=== PATIENT | female | born 1970 | race Caucasian/White ===

== ENCOUNTER 2017-06-02 18:05 | Observation (INO) | payer SELFPAY ==
[~2017-06-02] VITALS: Ht 164.6 cm; Wt 75.2 kg
--- NOTE | ~2017-06-02 | CON ---
PATIENT'S NAME: BRENTON MCKENZIE [facility] AGE: 46 Y [address] ROOM: [id number] [place], [place] [address] LOCATION: [facility] ADMIT DATE: 06/02/2017 Consultation DISCHARGE DATE: 06/02/2017 FAMILY PHYSICIAN: Physician, Unknown ATTENDING PHYSICIAN: Aria Stout This is a consultation for Dr. Stout, who has requested for medical management. CHIEF COMPLAINT: Chest pain. HISTORY OF PRESENT ILLNESS: This is a 46-year-old female, who left against medical advice after signing the AMA form and refused to be examined and refused to be interviewed, and was causing a lot of trouble and a scene in the hospital including disappearing from the hospital, and was found wandering on the third floor and then she left the hospital all of a sudden to smoke cigarette, and was nowhere to be found. The patient went missing few times in the hospital, and then eventually came back and then signed the AMA form and left against medical advice. I was consulted for medical management per Dr. Stout's request. I was not able to examine the patient on interview, given that patient refused to answer questions and signed the AMA form and left the hospital before I could do my consultation. All I was told by the nurse is that patient came here with chest pain, and is scheduled for a cardiac catheterization tomorrow, and that is all I know. As I mentioned before, the patient was causing a scene in the hospital, causing a lot of trouble, leaving the hospital to smoke cigarette, and just appearing in the hospital, was found wandering on the third floor, and then eventually left against medical advice after signing the AMA form. The patient was rude and making stories, saying that nurses are rude to the patient, saying that we are threatening her, which is totally not true. The patient refused to sign the form, and wanted to leave the hospital. I told the patient that in this case, I will have to call the [place] [employer] to come to evaluate her to see if she is safe to leave against medical advice without signing the AMA form. The patient took it as a threat, and was rude towards me and to the Medical staff. Initially, she refused to sign the AMA form, but eventually, she signed the form, and then she left the hospital when her came to pick her up. For the initial history and physical, refer to the history and physical dictated by the primary provider, which is Dr. Stout. The remainder of the history and physical cannot be obtained, given that patient left against medical advice after signing the AMA form. The patient is told, however, she can always come back at any time if her chest pain PATIENT'S NAME: BRENTON MCKENZIE [facility] AGE: 46 Y [address] ROOM: [id number] [place], [place] [id number] [facility] ADMIT DATE: 06/02/2017 Consultation DISCHARGE DATE: 06/02/2017 FAMILY PHYSICIAN: Physician, Unknown ATTENDING PHYSICIAN: Aria Stout recurs, or eventually when she changed her mind to stay in the hospital to receive medical treatment, she could always come back. The patient is aware, and left against medical advice after signing the form. The risks of leaving against medical advice was clearly explained to the patient including , and patient agreed and signed the form and left the hospital against medical advice. I did not insult the patient or do anything harmful to her, instead the patient was rude to me and to the Medical staff, and she left the hospital after signing the AMA form. I also called Dr. Stout to tell him about the updates, and he agreed that patient can leave the hospital because she is totally competent and understood all the benefits and risks, and signed the AMA form. So, patient should be let go, given that she is alert and awake x3, and understands the risks of leaving against medical advice after signing the AMA form. gastroenterology manager, nursing supervisors Katie and also Domenica, and the nurse Raymond were all present at that time she signed the form and left against medical advice after signing the AMA form. For the record, nobody did any harm to the patient. Nobody insulted the patient. Nobody was rude to the patient. The patient was rude to the Medical staff. The total time spent with patient with all these events was roughly around half an hour. The time I was talking to the patient and including the time that she signed the AMA form and left the hospital. MD Nohemy BRADFORD /[id number] d: t: 06/04/17 0248, CONSULTATION REPORT
[2017-06-02] MEDS ORDERED: XANAX0.25 MG PO (20:57)
[2017-06-02] MEDS ORDERED: ADDERALL 30 MG30 MG PO (21:00)
[2017-06-02] MEDS ORDERED: PERCOCET 5-3251 EACH PO (21:07)
[2017-06-02] MEDS ORDERED: SEROQUEL300 MG PO (21:10)
[2017-06-02] MEDS ORDERED: SEROQUEL XR150 MG PO (21:11)
[2017-06-02] MEDS ORDERED: ZESTRIL40 MG PO (21:12)
[2017-06-02] MEDS ORDERED: EFFEXOR XR75 MG PO (21:15)
[2017-06-02] MEDS ORDERED: TEGRETOL XR200 MG PO (21:25)
[2017-06-02] MEDS ORDERED: HYDRODIURIL12.5 MG PO (21:26)
[2017-06-02] MEDS ORDERED: DULERA 100 MCG/51 EA INH (21:27)
[2017-06-02] MEDS ORDERED: DUONEB INH (21:28)
[2017-06-02] MEDS ORDERED: PROAIR HFA8.5 GM INH ×2 (21:29→21:32)
== END 2017-06-02 23:44 | disposition left against medical advice (07) ==
LOC: EDSTATUS 18:05 → GPCU 18:05
PROVIDERS: ADMIT Internal Medicine Cardiovascular Disease
DX: R07.9 Chest pain, unspecified (principal); I10 Essential (primary) hypertension; E78.5 Hyperlipidemia, unspecified; J44.9 Chronic obstructive pulmonary disease, unspecified; F31.9 Bipolar disorder, unspecified; F17.210 Nicotine dependence, cigarettes, uncomplicated; Z88.1 Allergy status to other antibiotic agents; Z88.5 Allergy status to narcotic agent; Z91.040 Latex allergy status; Z79.899 Other long term (current) drug therapy; Z98.890 Other specified postprocedural states